=== PATIENT | female | born 1975 | race Caucasian/White ===

== ENCOUNTER → 2016-05-12 | Outpatient (CLI) | payer OTHER ==
--- NOTE | 2016-05-12 22:18 | MR ---
EXAMINATION TYPE: MR cervical spine wo con DATE OF EXAM: 05/12/2016 9:08 PM COMPARISON: 12/18/2013 HISTORY: Radiculopathy, cervical region TECHNIQUE: Multiplanar, multisequence images of the cervical spine were acquired. C2-C3: No evidence for degenerative disc disease. No disc bulge/herniation or protrusion. No Canal stenosis. Foramina are patent bilaterally. C3-C4: No evidence for degenerative disc disease. No disc bulge/herniation or protrusion. No Canal stenosis. Foramina are patent bilaterally. C4-C5: No evidence for degenerative disc disease. No disc bulge/herniation or protrusion. No Canal stenosis. Foramina are patent bilaterally. C5-C6: Vertebral body hemangioma of C5. There is degenerative disc disease. There is a broad-based ce ntral disc protrusion with mild effacement of thecal sac. No evidence of foraminal encroachment. C6-C7: Degenerative disc disease and left paracentral disc bulging or broad-based protrusion. Neural foramina remain patent. No spinal cord contact. C7-T1: No canal stenosis or disc herniation. Mild uncovertebral joint hypertrophy in the left. No for aminal encroachment Cervical segments are intact. There is normal alignment. Cervical spinal cord is limited due to mot ion artifact with no gross abnormal signal.. Craniovertebral junction demonstrates low-lying cerebel lar tonsils. IMPRESSION: 1. Degenerative disc disease C5-C6 and C6-C7 with disc protrusions and mild effacement of thecal sac but no evidence of foraminal encroachment or nerve root impingement. Findings are stable. 2. Low-lying cerebellar tonsils.
== END | disposition home or self-care (01) ==
LOC: RADMRIMAIN 20:33
PROVIDERS: ATTEND Family Medicine
DX: M50.122 Cervical disc disorder at C5-C6 level with radiculopathy (principal)
CPT/HCPCS: 72141

== ENCOUNTER → 2016-07-25 | Outpatient (CLI) | payer OTHER ==
--- NOTE | 2016-07-25 14:50 | MM ---
Reason for exam: screening (asymptomatic). Baseline mammogram. Physical Findings: Nurse Summary: 4cm nodule in the right medial retroareolar positon. (nurse mm) MG 3D Screening Mammo W/Cad Bilateral CC and MLO view(s) were taken. The breast tissue is heterogeneously dense. This may lower the sensitivity of mammography. Large right breast mass at site of palpable abnormality, ultrasound is recommended. These results were verbally communicated with the patient and result sheet given to the patient on 07/25/16. ASSESSMENT: Incomplete: need additional imaging evaluation, BI-RAD 0 RECOMMENDATION: Ultrasound of the right breast. Manage patient on a clinical basis.
--- NOTE | 2016-07-25 14:50 | USB ---
Reason for exam: additional evaluation requested from abnormal screening. Physical Findings: Breast exam preformed at baseline screening. US Breast Workup RT Right breast ultrasound includes all four quadrants, the retroareolar region and axilla. Finding demonstrates a 0.3 x 0.5 x 0.2cm oval, hypoechoic lesion at 6 o'clock, a 0.6 x 0.6 x 0.6cm round, mixed lesion at 8 o'clock, a 0.4 x 0.5 x 0.3cm oval, mixed lesion at 8 o'clock, a 0.9 x 0.5 x 0.3cm oval, hypoechoic lesion at 9 o'clock, a 5.5 x 4.3 x 3.0cm oval, cystic lesion at retroareolar position and a 1.2 x 1.0 x 0.5cm oval, cystic lesion at inferior retroareolar position. A 6 month follow up is recommended. These results were verbally communicated with the patient and result sheet given to the patient on 07/25/16. ASSESSMENT: Probably benign, BI-RAD 3 RECOMMENDATION: Ultrasound of the right breast in 6 months. Manage patient on a clinical basis.
== END | disposition home or self-care (01) ==
LOC: RADMAMWWP 12:45
PROVIDERS: ATTEND Obstetrics & Gynecology
DX: Z12.31 Encounter for screening mammogram for malignant neoplasm of breast (principal); R92.8 Other abnormal and inconclusive findings on diagnostic imaging of breast
CPT/HCPCS: 77063; 76641; G0202

== ENCOUNTER 2016-09-17 21:27 | Emergency (ER) | payer OTHER ==
[2016-09-17 21:44] VITALS: BP 122/83; PULSE 83; RESP 18; TEMP 97.9
[2016-09-17] MEDS ORDERED: IBUPROFEN 600 MG TAB PO STA (21:56)
--- NOTE | 2016-09-17 22:02 | ED ---
Extremity Problem HPI - General Chief complaint: Extremity Problem,Nontraumatic Stated complaint: L foot pain Time Seen by Provider: 09/17/16 21:42 Source: patient Mode of arrival: ambulatory Limitations: no limitations - History of Present Illness Initial comments: This patient is a 41-year-old woman who complains of a bit over a week of left foot pain, mainly along the lateral aspect. She states there may be a little bit of swelling as well. She saw her physician Dr. Santizo wanted her to have an x-ray but she has not been able to do that yet. Patient does not recall a definite injury to her foot. She is not having any systemic symptoms, including no fever or chills, no chest pain, dyspnea, cough, palpitations or syncope. MD Complaint: extremity pain Onset/Timin -: week(s) Location: left History of Same: No Quality: aching Consistency: constant Improves with: nothing Worsens with: weight bearing, walking Associated Symptoms: denies other symptoms - Related Data Home Medications Medication Instructions Recorded Confirmed Hydrocodone/Acetaminophen [[place] 1 tab PO Q4H PRN 12/22/13 08/26/15 10-325] ARIPiprazole [Abilify] 10 mg PO HS 08/26/15 08/26/15 OXcarbazepine [Trileptal] 150 mg PO BID 08/26/15 08/26/15 Topiramate [Topamax] 25 mg PO BID 08/26/15 08/26/15 Vortioxetine Hydrobromide 20 mg PO HS 08/26/15 08/26/15 [Brintellix] Allergies Allergy/AdvReac Type Severity Reaction Status Date / Time ciprofloxacin [From Cipro] Allergy Rash/Hives Verified 09/17/16 21:44 ciprofloxacin HCl Allergy Rash/Hives Verified 09/17/16 21:44 [From Cipro] dicyclomine HCl [From Bentyl] Allergy Unknown Verified 09/17/16 21:44 doxycycline calcium Allergy Unknown Verified 09/17/16 21:44 [From Vibramycin] doxycycline hyclate Allergy Unknown Verified 09/17/16 21:44 [From Vibramycin] doxycycline monohydrate Allergy Unknown Verified 09/17/16 21:44 [From Vibramycin] oxycodone HCl [From Percocet] Allergy Unknown Verified 09/17/16 21:44 tetracycline [Tetracycline] Allergy Unknown Verified 09/17/16 21:44 Review of Systems ROS Statement: Those systems with pertinent positive or pertinent negative responses have been documented in the HPI. ROS Other: All systems not noted in ROS Statement are negative. Constitutional: Denies: fever, chills, weakness Respiratory: Denies: dyspnea Cardiovascular: Denies: chest pain, palpitations Musculoskeletal: Reports: as per HPI, arthralgia. 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, bilateral knee pain History of Any Multi-Drug Resistant Organisms: MRSA Date of last positivie culture/infection: 04/16/15 MDRO Source:: Right Arm Past Surgical History: Cholecystectomy, Hernia Repair, Orthopedic Surgery, Tubal Ligation Additional Past Surgical History / Comment(s): back pains, left knee Past Psychological History: Anxiety, Bipolar, Depression Smoking Status: Current some day smoker Past Alcohol Use History: None Reported, Occasional Past Drug Use History: None Reported General Exam Limitations: no limitations General appearance: alert Cardiovascular Exam: Present: other (Normal dorsalis pedis pulses and normal capillary refill.) Extremities exam: Present: normal inspection, tenderness (Over the base of the fifth metatarsal tarsal. There is no obvious deformity.), normal capillary refill. Absent: pedal edema, calf tenderness Neurological exam: Absent: motor sensory deficit Skin exam: Present: warm, dry, intact, normal color. Absent: rash Course Vital Signs 09/17/16 21:41 Temperature 97.9 F Pulse Rate 83 Respiratory 18 Rate Blood Pressure 122/83 O2 Sat by Pulse 97 Oximetry Disposition Clinical Impression: Foot pain Disposition: HOME SELF-CARE Condition: Fair Instructions: Arthralgia (ED) Referrals: Gee Santizo MD [Primary Care Provider] - 1-2 days Luis Angel Reynolds DPM [STAFF PHYSICIAN] - 1-2 days
--- NOTE | 2016-09-17 22:27 | XR ---
EXAM: XR Left Foot Complete, 3 or More Views CLINICAL HISTORY: Reason: Pain TECHNIQUE: Frontal, lateral and oblique views of the left foot. COMPARISON: No relevant prior studies available. FINDINGS: Bones/joints: No acute fracture or malalignment. Plantar calcaneal osteophyte. Soft tissues: Unremarkable. No radiopaque foreign body. IMPRESSION: No acute fracture or malalignment.
== END 2016-09-17 22:59 | disposition home or self-care (01) ==
LOC: EC 21:27
DX: M79.672 Pain in left foot (principal); F31.9 Bipolar disorder, unspecified; F41.9 Anxiety disorder, unspecified; F17.200 Nicotine dependence, unspecified, uncomplicated; Z79.899 Other long term (current) drug therapy; Z88.1 Allergy status to other antibiotic agents; Z88.5 Allergy status to narcotic agent
CPT/HCPCS: 99283

== ENCOUNTER → 2016-10-05 | Outpatient (CLI) | payer OTHER ==
--- NOTE | 2016-10-05 14:31 | NM ---
EXAMINATION TYPE: NM bone/joint limited DATE OF EXAM: 10/05/2016 COMPARISON: 09/17/2016 HISTORY: Left foot pain TECHNIQUE: After the intravenous administration of 26.7 mCi Tc 99m MDP. Images acquired 3.5 hours p ost injection. Multiple views of left foot and ankle are submitted. There is intense abnormal uptake involving the dorsal surface of the mid tarsal region. Faint abnormal uptake involving the MTP joint of both digits compatible with arthritic change. IMPRESSION: 1. Intense abnormal uptake mid tarsal region left foot near the junction of the second metatarsal and its articulation with adjacent tarsal bone. Finding nonspecific. Differential diagnosis would includ e fracture, post arthritic change or intraosseous lesion in the differential. No intraosseous lesion seen by recent x-ray. If concern for occult fracture consider MRI follow-up.
== END | disposition home or self-care (01) ==
LOC: RADNMMAIN 10:11
PROVIDERS: ATTEND Family Medicine
DX: M79.662 Pain in left lower leg (principal)
CPT/HCPCS: 78300; A9503

== ENCOUNTER 2016-10-16 07:46 | Emergency (ER) | payer OTHER ==
[2016-10-16 07:52] VITALS: TEMP 97.8
[2016-10-16] MEDS ORDERED: KETOROLAC 60 MG/2 ML VIAL IM STA (08:14)
[2016-10-16 08:15] VITALS: BP 130/80; PULSE 89; RESP 18
--- NOTE | 2016-10-16 08:16 | ED ---
Lower Extremity Injury HPI - General Chief Complaint: Extremity Injury, Lower Stated Complaint: left foot pain Time Seen by Provider: 10/16/16 08:01 Source: patient Mode of arrival: wheelchair Limitations: no limitations - History of Present Illness Initial Comments: Patient is a 41-year-old female since emergency room for evaluation of left foot pain. Patient has been having left foot pain for the past month. Patient states she received a bone scan on 10/05/16 was told that she either has a fracture or a lesion. Patient states she has an MRI scheduled for next Sunday. Patient states she's continuing to have pain every time she walks. Patient states she's been taking [place] as prescribed by her primary care provider. Patient states that she came here today because she would like an MRI today. Patient states she wants to know what is wrong with her foot. Patient denies any recent new injuries to her foot. Patient denies any worsening pain. Patient denies numbness or tingling in her toes. Patient denies any redness or swelling at the area. Patient denies fevers or chills. Patient denies any other symptoms or complaints at this time. - Related Data Home Medications Medication Instructions Recorded Confirmed Hydrocodone/Acetaminophen [[place] 1 tab PO Q4H PRN 12/22/13 10/16/16 10-325] ARIPiprazole [Abilify] 10 mg PO HS 08/26/15 10/16/16 DULoxetine HCL [Cymbalta] 60 mg PO HS 10/16/16 10/16/16 Ibuprofen [Motrin] 400 mg PO DAILY PRN 10/16/16 10/16/16 LORazepam [Ativan] 1 mg PO DAILY PRN 10/16/16 10/16/16 OXcarbazepine [Trileptal] 300 mg PO HS 10/16/16 10/16/16 traZODone HCL [Desyrel] 100 mg PO HS 10/16/16 10/16/16 Allergies Allergy/AdvReac Type Severity Reaction Status Date / Time ciprofloxacin [From Cipro] Allergy Rash/Hives Verified 10/16/16 08:07 ciprofloxacin HCl Allergy Rash/Hives Verified 10/16/16 08:07 [From Cipro] dicyclomine HCl [From Bentyl] Allergy Unknown Verified 10/16/16 08:07 doxycycline calcium Allergy Unknown Verified 10/16/16 08:07 [From Vibramycin] doxycycline hyclate Allergy Unknown Verified 10/16/16 08:07 [From Vibramycin] doxycycline monohydrate Allergy Unknown Verified 10/16/16 08:07 [From Vibramycin] oxycodone HCl [From Percocet] Allergy Unknown Verified 10/16/16 08:07 tetracycline [Tetracycline] Allergy Unknown Verified 10/16/16 08:07 Review of Systems ROS Statement: Those systems with pertinent positive or pertinent negative responses have been documented in the HPI. ROS Other: All systems not noted in ROS Statement are negative. 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, bilateral knee pain History of Any Multi-Drug Resistant Organisms: MRSA Date of last positivie culture/infection: 04/16/15 MDRO Source:: Right Arm Past Surgical History: Cholecystectomy, Hernia Repair, Orthopedic Surgery, Tubal Ligation Additional Past Surgical History / Comment(s): back pains, left knee Past Psychological History: Anxiety, Bipolar, Depression Smoking Status: Current some day smoker Past Alcohol Use History: None Reported, Occasional Past Drug Use History: None Reported General Exam Limitations: no limitations General appearance: alert, in no apparent distress Head exam: Present: atraumatic, normocephalic, normal inspection Eye exam: Present: normal appearance ENT exam: Present: normal exam Neck exam: Present: normal inspection Respiratory exam: Absent: respiratory distress Left Ankle exam: Present: normal inspection. Absent: tenderness Foot/Toe exam: Present: full ROM, tenderness (Palpating over the fifth metatarsal area) Neurovascular tendon exam: Present: no vascular compromise. Absent: pulse deficit (2+ dorsal pedal and posterior tibial pulses), abnormal cap refill ( Capillary refill less than 2 seconds) Back exam: Present: normal inspection Neurological exam: Present: alert, oriented X3, CN II-XII intact Psychiatric exam: Present: normal affect, normal mood Skin exam: Present: warm, dry, intact, normal color. Absent: rash Course Vital Signs 10/16/16 10/16/16 07:49 07:57 Temperature 97.8 F Pulse Rate 84 89 Respiratory 17 18 Rate Blood Pressure 130/70 130/80 O2 Sat by Pulse 99 99 Oximetry Medical Decision Making - Medical Decision Making Patient is a 41-year-old female presents to the emergency room for evaluation of left foot pain. Patient has had x-rays, bone scan and is following up with quarter seamer and primary care provider. Patient does have an MRI scheduled for next Sunday. Patient came here wanting an MRI today. I did explain to patient that we do not do nonemergent MRIs in the emergency room. Advised patient to follow-up with primary care provider. Patient has [place] at home for pain. Patient given Toradol here and sent home. Patient states she understands everything that was discussed with her. Return parameters discussed. Case discussed Dr. Allen. Disposition Clinical Impression: Left foot pain Disposition: HOME SELF-CARE Condition: Good Instructions: Foot Fracture in Adults (ED) Additional Instructions: Rest, ice and elevate. Continue taking prescribed pain medications as needed. Please follow-up with primary care provider or quarter seamer. If new symptoms develop or symptoms worsen, please return to the ER. Referrals: Gee Santizo MD [Primary Care Provider] - 1-2 days Time of Disposition: 08:15
== END 2016-10-16 09:24 | disposition home or self-care (01) ==
LOC: EC 07:46
DX: M79.672 Pain in left foot (principal); F31.9 Bipolar disorder, unspecified; F41.9 Anxiety disorder, unspecified; F17.200 Nicotine dependence, unspecified, uncomplicated; Z79.899 Other long term (current) drug therapy; Z88.1 Allergy status to other antibiotic agents; Z88.8 Allergy status to other drugs, medicaments and biological substances; Z98.890 Other specified postprocedural states
CPT/HCPCS: 99283; 96372; J1885

== ENCOUNTER → 2016-10-23 | Outpatient (CLI) | payer OTHER ==
--- NOTE | 2016-10-24 14:40 | MR ---
MR left foot without contrast HISTORY: Foot pain, S92.3 Correlation to nuclear medicine bone scan 10/05/2016, left foot 09/17/2016 Multiplanar multisequence imaging through the left foot There is increased signal on T2-weighted sequences, low signal on T1-weighted sequences involving the proximal second metatarsal. Low signal linear focus present within the proximal aspect of the second metatarsal seen better on the axial images is noted. Alignment appears maintained. Cystic foci present within the medial aspect of the distal first metatarsal correlate with plain film findings. There is a hallux valgus deformity. Subcutaneous edema present within the soft tissues of the distal leg. Tendons appear intact. Plantar aponeurosis is intact. Lisfranc ligament thought to be intact. Impression: Proximal second metatarsal fracture with associated bone marrow edema. No evident displac ement.
== END | disposition home or self-care (01) ==
LOC: RADMRIMAIN 06:00
PROVIDERS: ATTEND Podiatrist Foot & Ankle Surgery
DX: S92.322A Displaced fracture of second metatarsal bone, left foot, initial encounter for closed fracture (principal)

== ENCOUNTER → 2016-12-19 | Outpatient (CLI) | payer OTHER ==
--- NOTE | 2016-12-19 11:21 | XR ---
EXAMINATION TYPE: XR knee complete LT DATE OF EXAM: 12/19/2016 COMPARISON: 05/29/2015 HISTORY: Pain TECHNIQUE: Four views are submitted. FINDINGS: Mild narrowing of the medial compartment of the joint space. Osseous structures are intact. No acute fracture seen. IMPRESSION: 1. No acute fracture or dislocation. 2. Mild arthropathy.
--- NOTE | 2016-12-19 11:24 | XR ---
EXAM TYPE: LUMBAR SPINE X RAY SERIES COMPARISON: NONE HISTORY: Pain TECHNIQUE: 4 views are submitted. FINDINGS: Alignment is anatomic. The pedicles are intact. The transverse processes are intact. There is no s pondylolysis or spondylolisthesis. Surgical clips in the right upper quadrant. Moderate degenerative disc disease L4-5 and severe change s L5-S1 with facet arthropathy. No compression deformities. IMPRESSION: 1. Multilevel degenerative disc disease.
== END | disposition home or self-care (01) ==
LOC: RADXRMAIN 09:59
PROVIDERS: ATTEND Family Medicine
DX: M51.36 Other intervertebral disc degeneration, lumbar region (principal); M12.862 Other specific arthropathies, not elsewhere classified, left knee
CPT/HCPCS: 72100

== ENCOUNTER → 2017-06-13 | Outpatient (CLI) | payer OTHER ==
--- NOTE | 2017-06-13 11:54 | MM ---
Reason for exam: additional evaluation requested from prior study. Last mammogram was performed 11 months ago. History: Patient is nulliparous. Took hormonal contraceptives for 13 years beginning at age 15. Physical Findings: Nurse Summary: less than 1cm nodule in the right breast at 6 o'clock (nurse rm). MG 3D Diag Mammo W/Cad RT CC and MLO view(s) were taken of the right breast. Prior study comparison: July 25, 2016, bilateral MG 3d screening mammo w/cad. The breast tissue is heterogeneously dense. This may lower the sensitivity of mammography. The previous large mass has decreased in size. Dense tissues are again demonstrated. Ultrasound 6-9 o'clock recommended as follow up from 07/25/16. These results were verbally communicated with the patient and result sheet given to the patient on 06/13/17. ASSESSMENT: Incomplete: need additional imaging evaluation, BI-RAD 0 RECOMMENDATION: Ultrasound of the right breast. (6-9 o'clock)
--- NOTE | 2017-06-13 11:57 | USB ---
Reason for exam: additional evaluation requested from abnormal screening. History: Patient is nulliparous. Took hormonal contraceptives for 13 years beginning at age 15. US Breast Workup Limited RT Right breast ultrasound demonstrates a 9mm oval, cystic lesion at 6 o'clock BB, this is embedded in dense tissue and is mildly decreased in size from priors, a 9mm oval, cystic lesion at 7 o'clock, a 5mm oval, cystic lesion at 7 o'clock and a 5mm oval, cystic lesion at 8 o'clock. Patient is due for annual exam in 2 months. These results were verbally communicated with the patient and result sheet given to the patient on 06/13/17. ASSESSMENT: Probably benign, BI-RAD 3 RECOMMENDATION: Follow-up diagnostic mammogram of both breasts in 2 months. Back on schedule.
== END | disposition home or self-care (01) ==
LOC: RADMAMWWP 09:57
PROVIDERS: ATTEND Family Medicine
DX: N63.10 Unspecified lump in the right breast, unspecified quadrant (principal); R92.8 Other abnormal and inconclusive findings on diagnostic imaging of breast
CPT/HCPCS: 77065; 76642; G0279

== ENCOUNTER 2017-12-12 11:31 | Inpatient (IN) | payer OTHER ==
[2017-12-12] MEDS: metroNIDAZOLE 500 MG TAB PO SCH ×2 (16:22→21:38)
[2017-12-12] MEDS: KETOROLAC 30 MG/ML 1 ML VIAL IVP SCH (16:22)
[2017-12-12] MEDS: LACTATED RINGERS 1,000 ML IV SCH (16:23)
--- NOTE | 2017-12-12 17:40 | P.OBCN ---
History of Present Illness Consult date: 12/12/17 Requesting physician: Vladislav Bradshaw Reason for consult: pelvic pain (with CT at [facility] showing some heterogenous area in left adnexa) Chief complaint: Left Upper Quadrant Pain History of present illness: 42 year old admitted into the [facility] for left upper quadrant pain. The pain started last Sunday and her PCP, Dr. Bradshaw, ordered a computed tomography scan at [facility]. This computed tomography scan showed a heterogenous area of about 5 cm in the left adnexa. He placed her on Flagyl and Levaquin outpatient and ordered an ultrasound to be performed this evening. She failed this outpatient treatment and he admitted her directly today for her pain. I was consulted for possible tubo-ovarian abscess. The patient states she has been having intercourse with a relatively new boyfriend. She's been having no increase in vaginal discharge and no increase in pelvic pain. She's been going the bathroom moderate but does have an increase in pain/pressure with urination and bowel movements. She has no diarrhea or constipation. Review of Systems All systems: negative Constitutional: Reports chills, Denies fever Eyes: denies blurred vision, denies pain Ears, nose, mouth and throat: Denies headache, Denies sore throat Cardiovascular: Denies chest pain, Denies shortness of breath Respiratory: Denies cough Gastrointestinal: Reports abdominal pain, Denies diarrhea, Denies nausea, Denies vomiting Genitourinary: Denies dysuria, Denies hematuria Musculoskeletal: Denies myalgias Integumentary: Denies pruritus, Denies rash Neurological: Denies numbness, Denies weakness Psychiatric: Denies anxiety, Denies depression Endocrine: Denies fatigue, Denies weight change Past Medical History Additional Past Medical History / Comment(s): Bicornuate uterus, diverticular disease, past rectal bleed, lymphedema, chronic low back pain, past tailbone fracture, depression History of Any Multi-Drug Resistant Organisms: MRSA Year Discovered:: 04/16/15 MDRO Source:: Right Arm Past Surgical History: Adenoidectomy, Section, Cholecystectomy, Hernia Repair, Orthopedic Surgery, Tonsillectomy, Tubal Ligation Additional Past Surgical History / Comment(s): EGDs/colonoscopies, incisional hernia repair, D&C, low back pain procedures, lower lip mole removal. Past Psychological History: Depression Smoking Status: Current every day smoker Past Alcohol Use History: None Reported Past Drug Use History: None Reported - Past Family History Father Family Medical History: CVA/TIA, Hypertension Mother Family Medical History: Diabetes Mellitus Medications and Allergies Home Medications Medication Instructions Recorded Confirmed Type Hydrocodone/Acetaminophen 1 tab PO Q4-6H PRN 12/12/17 12/12/17 History [Hydrocodone-Acetamin 10-300 mg] Sulfamethoxazole/Trimethoprim 1 tab PO BID 12/12/17 12/12/17 History [Bactrim DS 800-160 mg] metroNIDAZOLE [Flagyl] 500 mg PO TID 12/12/17 12/12/17 History Allergies Allergy/AdvReac Type Severity Reaction Status Date / Time ciprofloxacin [From Cipro] Allergy Rash/Hives Verified 12/12/17 14:12 ciprofloxacin HCl Allergy Rash/Hives Verified 12/12/17 14:12 [From Cipro] dicyclomine HCl [From Bentyl] Allergy Unknown Verified 12/12/17 14:12 doxycycline calcium Allergy Unknown Verified 12/12/17 14:12 [From Vibramycin] doxycycline hyclate Allergy Unknown Verified 12/12/17 14:12 [From Vibramycin] doxycycline monohydrate Allergy Unknown Verified 12/12/17 14:12 [From Vibramycin] oxycodone HCl [From Percocet] Allergy Unknown Verified 12/12/17 14:12 tetracycline [Tetracycline] Allergy Unknown Verified 12/12/17 14:12 Exam Osteopathic Statement: *. No significant issues noted on an osteopathic structural exam other than those noted in the History and Physical/Consult. Vital Signs Temp Pulse Resp BP Pulse Ox 12/12/17 15:00 97.9 F 71 16 108/67 99 Intake and Output 12/12/17 12/12/17 12/12/17 06:59 14:59 22:59 Other: Weight 77.1 kg Heart: RRR Lungs: CTAB Abdomen: soft, tender in LUQ to deep palpation, +BS, no rebound or rigidity Extremeties: neg erica's Assessment and Plan (1) Abdominal infection Current Visit: Yes Status: Acute Code(s): K65.9 - PERITONITIS, UNSPECIFIED SNOMED Code(s): 031559743 Plan: 1. pelvic ultrasound 2. I am not convinced this is a tubo-ovarian abscess yet. I cannot do GC/C testing as she has been on levaquin for a few days already. I will get the US and review the CT again. She is currently on IV flagyl and Bactrim. We will see if these improve her symptoms and what the US shows.
--- NOTE | 2017-12-12 18:40 | HP ---
HISTORY AND PHYSICAL CHIEF COMPLAINT: Left lower abdominal pain for several days. HISTORY OF PRESENT ILLNESS: This is the first known admission for this 42-year-old white female who came to the office with abdominal pain a day or 2 ago. She seemed to be quite uncomfortable and the diagnosis was difficult. She was sent for a CT of the abdomen which demonstrated a left lower quadrant mass and possibly something going on in the area of the left ovary or fallopian tube. She had no fever, vomiting, diarrhea, urinary complaints, etc. There was concern that she could have diverticulitis, but when the CT suggested something on the left ovary, an ultrasound was ordered, but apparently the patient was stuck in the hospital and the procedure was not done. She called the office several hours later that she was leaving. We followed up with her on the morning of admission, and her pain was not any better or worse, and she was directed to the hospital. REVIEW OF SYSTEMS: She has had no neurologic problems, cough, shortness of breath, chest pain, hemoptysis, hypertension, heart disease, nausea, vomiting, hematemesis, melena, hematochezia, hematuria, dysuria, frequency, renal disease, vaginal discharge, bleeding, etc. Past medical history, family history, and personal and social histories reveal that she is ALLERGIC to: 1. PENICILLIN. 2. PERCOCET. 3. GEODON. 4. BENTYL. 5. TETRACYCLINE. She had been given Levaquin 750 mg once a day and Flagyl 500 three times a day. Past medical history reveals she has had a tubal ligation and herniorrhaphy as well as cholecystectomy. She has had 4 pregnancies and 4 children. She does smoke. PHYSICAL EXAMINATION: Blood pressure 122/80, pulse 84, respirations 16 and temperature 98.6. In general she appeared to be uncomfortable. Skin color was normal. Skin was warm and dry. Lymph nodes were not enlarged. Head, ears, eyes, nose, mouth and throat were normal. Neck veins were not distended. CHEST: Clear. Cardiac exam was normal. The abdomen was slightly protuberant and she had generalized mild lower abdominal tenderness which was a little worse on the left than on the right. There were no masses. Pelvic was not performed in the office. Neurologically she was intact. IMPRESSION: 1. Left lower quadrant abdominal pain, etiology unknown. 2. ? left ovarian abnormality. PLAN: 1. Bedrest. 2. IV fluids. 3. Continue antibiotics. 4. Consult with Gynecology and Surgery. OFELIA / LOYN: [id number] /
--- NOTE | 2017-12-12 19:42 | US ---
EXAMINATION TYPE: US pelvis complete transvag DATE OF EXAM: 12/12/2017 COMPARISON: NONE CLINICAL HISTORY: LLQ pain. LLQ pain. Patient unable to drink water. Unknown LMP- Patient states sh e does not keep track since her tubal ligation TECHNIQUE: Transabdominal (TA). Transabdominal sonographic images of the pelvis were acquired. Tra nsvaginal sonographic images were medically necessary to better assess the following anatomy: Ovaries , Uterus and Endometrium Date of LMP: Unknown, EXAM MEASUREMENTS: Uterus: 7.8 x 5.1 x 3.9 cm Endometrial Stripe: 0.8 cm Right Ovary: 3.6 x 2.3 x 1.9 cm Left Ovary: 3.5 x 1.7 x 2.0 cm 1. Uterus: Anteverted wnl 2. Endometrium: wnl 3. Right Ovary: Pedunculated cystic appearing lesion seen = 1.7 x 1.4 cm. 4. Left Ovary: two lesions seen. 1- peripheral vascular flow seen = 1.8 x 1.4 x 1.8 cm. 2- Heterog enous, nonvascular = 1.8 x 1.5 x 1.4 cm 5. Bilateral Adnexa: free fluid seen adjacent to left ovary 6. Posterior cul-de-sac: Moderate amount of free fluid IMPRESSION: Uterus appears normal. There is free fluid in the cul-de-sac. There is a thick-walled cys t that measures 18 mm on the left ovary. There is a simple 17 mm cyst on the right ovary.
[2017-12-12] MEDS: HYDROmorphone 1 MG/ML 1 ML SYRINGE IVP PRN (19:51)
[2017-12-12] MEDS: SULFAMETHOX-TMP 800-160MG 1 EACH TAB PO SCH (21:38)
[2017-12-13] MEDS: KETOROLAC 30 MG/ML 1 ML VIAL IVP SCH ×4 (00:39→18:35)
[2017-12-13] MEDS: LACTATED RINGERS 1,000 ML IV SCH ×3 (00:40→18:52)
[2017-12-13 02:25] VITALS: RESP 18
[2017-12-13] MEDS: HYDROmorphone 1 MG/ML 1 ML SYRINGE IVP PRN ×3 (04:28→21:01)
[2017-12-13] MEDS: SULFAMETHOX-TMP 800-160MG 1 EACH TAB PO SCH ×2 (07:16→20:55)
[2017-12-13] MEDS: metroNIDAZOLE 500 MG TAB PO SCH ×3 (07:16→21:00)
[2017-12-13 09:21] LABS: Basophils % (A) 0 %; Eosinophils # (A) 0.1 k/uL (0-0.7); Eosinophils % (A) 2 %; HCT 39.3 % (34.0-46.0); HGB 13.1 gm/dL (11.4-16.0); Lymphocytes # (A) 2.2 k/uL (1.0-4.8); Lymphocytes % (A) 51 %; MCH 30.3 pg (25.0-35.0); MCHC 33.3 g/dL (31.0-37.0); MCV 91.2 fL (80.0-100.0); Mean Platelet Volume 7.2; Monocytes # (A) 0.3 k/uL (0-1.0); Monocytes % (A) 7 %; Neutrophils # (A) 1.7 k/uL (1.3-7.7); Neutrophils % (A) 38 %; Platelet Count 194 k/uL (150-450); WBC 4.4 k/uL (3.8-10.6)
[2017-12-13 15:28] VITALS: BMI 26.6
--- NOTE | 2017-12-13 17:33 | P.GSCN ---
History of Present Illness Consult date: 12/13/17 Reason for Consult: Abdominal pain History of present illness: 42-year-old female known to our service. Patient has had complaints of nausea and occasional episodes of vomiting since 1 week ago. She went to the ER at [facility] last Sunday. CAT scan was apparently performed and showed a 5 cm left adnexal heterogeneous area. She was apparently given oral antibiotics and discharged home. She went to her PCP and was then subsequently admitted. Still having pain in the left lower quadrant. Seems to be improving. Nausea and vomiting are better. She is afebrile. White blood cell count is normal. [employer] ordered an ultrasound which showed 2 cystic lesions in the left adnexa. No significant change in bowel habits. No rectal bleeding. She is hungry. Official records from [facility] not available at this time. Review of Systems The patient denies any acute changes in vision or hearing, no dysphagia or odynophagia, no chest pain or shortness of breath, no dysuria or hematuria, no headache, no runny nose, no rectal bleeding or melena, no unexplained weight loss Past Medical History Additional Past Medical History / Comment(s): Bicornuate uterus, diverticular disease, past rectal bleed, lymphedema, chronic low back pain, past tailbone fracture, depression History of Any Multi-Drug Resistant Organisms: MRSA Year Discovered:: 04/16/15 MDRO Source:: Right Arm Past Surgical History: Adenoidectomy, Section, Cholecystectomy, Hernia Repair, Orthopedic Surgery, Tonsillectomy, Tubal Ligation Additional Past Surgical History / Comment(s): EGDs/colonoscopies, incisional hernia repair, D&C, low back pain procedures, lower lip mole removal. Past Psychological History: Depression Smoking Status: Current every day smoker Past Alcohol Use History: None Reported Past Drug Use History: None Reported - Past Family History Father Family Medical History: CVA/TIA, Hypertension Mother Family Medical History: Diabetes Mellitus Medications and Allergies Home Medications Medication Instructions Recorded Confirmed Type Hydrocodone/Acetaminophen 1 tab PO Q4-6H PRN 12/12/17 12/12/17 History [Hydrocodone-Acetamin 10-300 mg] Sulfamethoxazole/Trimethoprim 1 tab PO BID 12/12/17 12/12/17 History [Bactrim DS 800-160 mg] metroNIDAZOLE [Flagyl] 500 mg PO TID 12/12/17 12/12/17 History Allergies Allergy/AdvReac Type Severity Reaction Status Date / Time ciprofloxacin [From Cipro] Allergy Rash/Hives Verified 12/12/17 14:12 ciprofloxacin HCl Allergy Rash/Hives Verified 12/12/17 14:12 [From Cipro] dicyclomine HCl [From Bentyl] Allergy Unknown Verified 12/12/17 14:12 doxycycline calcium Allergy Unknown Verified 12/12/17 14:12 [From Vibramycin] doxycycline hyclate Allergy Unknown Verified 12/12/17 14:12 [From Vibramycin] doxycycline monohydrate Allergy Unknown Verified 12/12/17 14:12 [From Vibramycin] oxycodone HCl [From Percocet] Allergy Unknown Verified 12/12/17 14:12 tetracycline [Tetracycline] Allergy Unknown Verified 12/12/17 14:12 Surgical - Exam Vital Signs Temp Pulse Resp BP Pulse Ox 97.9 F 71 16 108/67 99 12/12/17 15:00 12/12/17 15:00 12/12/17 15:00 12/12/17 15:00 12/12/17 15:00 Physical exam: General: Well-developed, well-nourished HEENT: Normocephalic, sclerae nonicteric Abdomen: Mild left lower quadrant tenderness, nondistended Extremities: No edema Neuro: Alert and oriented Results - Labs 12/13/17 08:55 Assessment and Plan (1) Abdominal pain Narrative/Plan: We'll review official CT report. Continue antibiotics. If symptoms persist would recommend repeat CAT scan with oral and IV contrast. Patient is hungry. Will resume diet. Current Visit: Yes Status: Acute Code(s): R10.9 - UNSPECIFIED ABDOMINAL PAIN SNOMED Code(s): 27389949
[2017-12-14] MEDS: KETOROLAC 30 MG/ML 1 ML VIAL IVP SCH ×3 (01:30→11:18)
[2017-12-14] MEDS: LACTATED RINGERS 1,000 ML IV SCH ×2 (01:31→07:55)
[2017-12-14] MEDS: HYDROmorphone 1 MG/ML 1 ML SYRINGE IVP PRN (07:57)
[2017-12-14] MEDS: SULFAMETHOX-TMP 800-160MG 1 EACH TAB PO SCH (07:57)
[2017-12-14] MEDS: metroNIDAZOLE 500 MG TAB PO SCH (07:57)
[2017-12-14] MEDS ORDERED: IOPAMIDOL-300 CONTRAST 30 ML VIAL (ORAL USE) PO PRN (11:22)
--- NOTE | 2017-12-14 11:22 | P.PN ---
Subjective Progress Note Date: 12/14/17 42-year-old female who reports continues to have persistent left lower quadrant pain no improvement from prior assessment. Patient states she tried to eat a regular diet last night ate a small amount after eating noted increased left lower quadrant pain nausea sensation no emesis. Patient points to the left lower quadrant is to the reference point. Patient apparently went to the emergency room at last Sunday. CAT scan apparently was performed showed a 5 cm left adenexal area. Patient apparently at that time was given oral antibiotic and sent home. Went to her PCP who subsequently advised admission. Have not been able to obtain medical records from at this time Objective - Vital Signs Vital signs: Vital Signs Temp 98.5 F 12/14/17 07:00 Pulse 65 12/14/17 07:00 Resp 18 12/14/17 07:00 BP 107/70 12/14/17 07:00 Pulse Ox 97 12/14/17 07:00 Intake & Output 12/13/17 12/14/17 12/14/17 18:59 06:59 18:59 Intake Total 750 480 Balance 750 480 Weight 77.1 kg Intake: Oral 750 480 Other: Voiding Method Toilet # Voids 3 2 # Bowel Movements 0 - Exam Physical exam 42-year-old female in room continues to report having left lower quadrant pain Lungs adequate air movement bilaterally on room air Heart S1-S2 audible regular Abdomen mild tenderness left lower quadrant. Soft nondistended bowel tones present states belching no stool reports a nausea sensation after trying to eat a regular diet last night - Labs CBC & Chem 7: 12/13/17 08:55 Assessment and Plan Assessment: Impression Present on admission left lower quadrant pain unclear etiology Abdominal pain present on admission left lower quadrant A prior CAT scan of the abdomen pelvis performed at [facility] on report indicate 5cm left adnexal area Ultrasound to cyst in the left adnexa Plan repeat a computed tomography scan with IV and oral contrast the abdomen pelvis follow up on results Pain control, Attempt to obtain prior medical records from Dictating progress note for Dr. virk running on behalf of Dr. root The above impression and plan of care have been discussed and directed by signing physician. Jayne Hernandez nurse practitioner acting as scribe for signing physician.
[2017-12-14 13:41] LABS: Anion Gap 9 mmol/L; Blood Urea Nitrogen 8 mg/dL (7-17); Calcium 9.1 mg/dL (8.4-10.2); Carbon Dioxide 22 mmol/L (22-30); Chloride 106 mmol/L (98-107); Glucose 75 mg/dL (74-99); Potassium 4.6 mmol/L (3.5-5.1); Sodium 137 mmol/L (137-145)
[2017-12-14 14:40] VITALS: BP 107/66; PULSE 62; TEMP 98.6
--- NOTE | 2017-12-18 19:01 | DS ---
DISCHARGE SUMMARY DATE OF SERVICE: 12/14/2017. CHIEF COMPLAINT: Abdominal pain. HISTORY OF PRESENT ILLNESS AND PHYSICAL EXAM: Details of this lady's history and physical can be found in the initial workup. COURSE IN THE HOSPITAL: After admission, she was placed on bedrest and started on intravenous fluids and it was thought that she may have diverticulitis. Studies, however, indicated that this was not the case and that she had enlarged left ovary. She was seen by Gynecology, who recommended outpatient followup. It was felt that she could go home on the and she will follow up in the office in several days and we will make an appointment for her to also see Gynecology. FINAL DIAGNOSES: 1. Left lower quadrant abdominal pain. 2. Left ovarian mass. OPERATIONS: None. CONSULTATIONS: Gynecology and Surgery. She is improved. MMODL / IJN: [id number] /
--- NOTE | 2017-12-19 15:44 | PN ---
PROGRESS NOTE DATE OF SERVICE: 12/13/2017 CHIEF COMPLAINT: Left lower quadrant abdominal pain. HISTORY OF PRESENT ILLNESS: This lady continues to have the pain in the left lower quadrant. CT suggests that this is not diverticulitis, and she has an enlarged mass in or around the left ovary. She is being evaluated by Gynecology. PHYSICAL EXAMINATION: She is heating and ventilating tender in the left lower quadrant. There are no masses. Chest is clear. IMPRESSION: Left lower quadrant pain with an ovarian mass. PLAN: Await guidelines from Gynecology. MMODL / IJN: [id number] /
== END 2017-12-14 16:33 | disposition home or self-care (01) | DRG 761 ==
LOC: 4MS4W 13:36
PROVIDERS: ADMIT Family Medicine; ATTEND Family Medicine
DX: N83.202 Unspecified ovarian cyst, left side (principal); N83.201 Unspecified ovarian cyst, right side; F17.200 Nicotine dependence, unspecified, uncomplicated; Z82.49 Family history of ischemic heart disease and other diseases of the circulatory system; Z83.3 Family history of diabetes mellitus; Z82.3 Family history of stroke; Z88.1 Allergy status to other antibiotic agents; Z88.5 Allergy status to narcotic agent; Z88.0 Allergy status to penicillin; Z88.8 Allergy status to other drugs, medicaments and biological substances; F32.9 Major depressive disorder, single episode, unspecified; M54.5 Low back pain; G89.29 Other chronic pain; Z86.14 Personal history of Methicillin resistant Staphylococcus aureus infection; K57.90 Diverticulosis of intestine, part unspecified, without perforation or abscess without bleeding
CPT/HCPCS: 76830; 76856; 80048; 85025

== ENCOUNTER → 2017-12-24 | Outpatient (CLI) | payer OTHER ==
--- NOTE | 2017-12-24 22:49 | CT ---
EXAMINATION TYPE: CT abdomen pelvis w con DATE OF EXAM: 12/24/2017 HISTORY: Abdominal pain x1 month per patient. Left upper quadrant pain per order. CT DLP: 1242mGycm Automated Exposure Control for Dose Reduction was Utilized. CONTRAST: CT scan of the abdomen and pelvis is performed with oral and with IV Contrast, patient injected with 100 mL of Isovue 300. COMPARISON: Prior CT abdomen and pelvis February 05, 2012. Recent outside CT abdomen and pelvis Septem 2017 FINDINGS: LUNG BASES: No significant abnormality is appreciated. LIVER/GB: Cholecystectomy clips are redemonstrated. PANCREAS: No significant abnormality is seen. SPLEEN: No significant abnormality is seen. ADRENALS: No significant abnormality is seen. KIDNEYS: Slightly asymmetric larger left kidney is redemonstrated. Symmetric cortical uptake and excr etion without hydronephrosis or concerning mass is redemonstrated. BOWEL: Oral contrast does not reach colonic level making evaluation of distal bowel suboptimal. There is no suspicious small or large bowel dilatation seen there is fecal prominence throughout the colon most prominent in the cecum. There are few diverticula in the sigmoid colon. There is mild wall thic kening in the mid to distal sigmoid colon. This is presumed product of poor distention, a mild coliti s should be excluded clinically. UTERUS/ADNEXA: Anteverted uterus is again seen. Tubal ligation clips along the left margin of uterus is redemonstrated. Displaced clip into pelvic cul-de-sac is seen axial image 73. This has changed pos ition from recent CT. Left ovary is slightly larger in size versus right ovary but diminished in size from prior exam. There is interval resolution of free fluid in pelvic cul-de-sac. LYMPH NODES: No greater than 1cm abdominal or pelvic lymph nodes are appreciated. OSSEOUS STRUCTURES: There is persistent dextroconvex scoliosis centered in the upper lumbar spine. Mo derate to advanced disc space narrowing lumbosacral junction is redemonstrated. OTHER: Vertical scar in the midline of the upper to mid abdomen above the umbilicus is redemonstrated . IMPRESSION: New [id number] colonic fecal stasis most prominent in the cecum. No bowel obstructi on is noted. No suspicious new findings otherwise seen to account for patient's symptoms.
== END | disposition home or self-care (01) ==
LOC: RADCTMAIN 17:02
PROVIDERS: ATTEND Obstetrics & Gynecology
DX: K56.41 Fecal impaction (principal)
CPT/HCPCS: 74177; Q9967

== ENCOUNTER → 2019-09-17 | Outpatient (CLI) | payer OTHER ==
--- NOTE | 2019-09-18 07:16 | MR ---
EXAMINATION TYPE: MR lumbar spine wo/w con DATE OF EXAM: 09/17/2019 COMPARISON: CT abdomen and pelvis December 24, 2017 HISTORY: Lumbosacral DDD with radiculopathy per order. Chronic back pain into right calf for years pe r patient. TECHNIQUE: Multiplanar, multisequence images of the lumbar spine is performed without and with IV contrast, util izing 7 mL intravenous Gadavist FINDINGS: There is persistent dextroconvex scoliosis centered near the thoracolumbar junction. Sagitt al images of the lumbar spine show vertebral body heights and alignment to appear satisfactory. Multi level disc desiccation with mild disc space narrowing L4-L5 and moderate disc space narrowing L5-S1 l evels redemonstrated. The conus medullaris is normal in position and signal ending inferior L1 level . Heterogeneous Modic type II endplate changes involving the right L4-L5 level. Postcontrast images s how single enhancing left sacral nerve, nonspecific finding. Some prominence of epidural fat noted be ginning mid S2 level. Axial images at T12-L1 level shows focal left paracentral disc protrusion effacing anterolateral thec al sac on axial image 31. Axial images at L1-L2, L2-L3, and L3-L4 levels are all within normal limits. Axial images at L4-L5 level show mild to moderate facet degenerative changes and ligamentum flavum hy pertrophy effacing posterior lateral thecal sac. There is broad disc bulge with right paracentral dis c protrusion component effacing the anterior thecal sac. There is mild right greater than left bilate ral anterior inferior neural foraminal narrowing. Axial images at the L5-S1 level show mild facet degenerative changes bilaterally. Spinal canal preser vane. Nonenhancing 9 x 5 mm ovoid lesion anterior to IVC in the liver favors thin-walled cyst axial image 3 2. IMPRESSION: Multilevel degenerative changes in the lumbar spine greatest T12-L1 and L4-L5 levels as d etailed above
== END | disposition home or self-care (01) ==
LOC: RADMRIMAIN 17:41
PROVIDERS: ATTEND Physical Medicine & Rehabilitation
DX: M47.26 Other spondylosis with radiculopathy, lumbar region (principal); M54.9 Dorsalgia, unspecified; G89.29 Other chronic pain
CPT/HCPCS: 72158; A9585

== ENCOUNTER → 2020-09-27 | Outpatient (CLI) | payer OTHER ==
--- NOTE | 2020-09-27 14:55 | CT ---
EXAMINATION TYPE: CT abdomen pelvis w con DATE OF EXAM: 09/27/2020 COMPARISON: 12/24/2017 HISTORY: 45-year-old female K57.32, Diverticulitis, left lower quadrant pain TECHNIQUE: Contiguous axial scanning of the abdomen and pelvis following administration of 100 ml Iso carmelina 300 IV contrast. Delayed images through the kidneys and coronal/sagittal reconstructions perform ed. CT DLP: 722.8 mGycm Automated exposure control for dose reduction was used. FINDINGS: Heart normal size without pericardial effusion. Some minimal mosaic attenuation the visualized lower lungs could reflect small airways disease. No pleural effusion. Liver enlarged at 19.9 cm. No focal lesions seen. Portal venous system is patent. No biliary ductal d ilatation. Cholecystectomy clips. Adrenal glands, kidneys, and pancreas appear within normal limits. Spleen mildly enlarged at 14.2 cm measured on axial series, axial image 20. Prior epigastric ventral abdominal wall mesh repair. No dilated small bowel, free fluid, or free air. Moderate stool burden. No paraspinous inflammatory change. Masslike thickening within the lower ascen ding colon near the region of the ileocecal valve measuring 4.8 cm wide by 3.6 cm craniocaudal, axial image 51 and coronal image 27. Borderline enlarged right lower quadrant mesenteric lymph node measuring up to 8 mm, axial image 46, probably reactive. Otherwise, no abdominal lymphadenopathy seen. Bladder is urine distended. Uterus is anteverted. Both ovaries are visualized. No abnormal fluid saurabh ection in the pelvis. A displaced tubal ligation clip is present in the cul-de-sac. Left-sided tubal ligation clip also noted. No pelvic lymphadenopathy seen. Bones: Moderate degenerative disc disease lower lumbar spine and mild in the lower thoracic spine. IMPRESSION: 1. MASS LIKE DENSITY IN THE LOWER ASCENDING COLON NEAR THE REGION OF THE ILEOCECAL VALVE MEASURING 4. 8 CM. COLON CANCER SHOULD BE EXCLUDED. RECOMMEND DIRECT VISUALIZATION. 2. NO OBSTRUCTIVE OR INFLAMMATORY CHANGES. 3. HEPATOMEGALY (19.9 CM), MILD SPLENOMEGALY (14.2 CM), MODERATE STOOL BURDEN, AND A DISPLACED RIGHT TUBAL LIGATION CLIP WITH THE CLIP LOCATED IN THE CUL-DE-SAC.
== END | disposition home or self-care (01) ==
LOC: RADCTMAIN 10:02
PROVIDERS: ATTEND Surgery
DX: R16.2 Hepatomegaly with splenomegaly, not elsewhere classified (principal); T83.428A Displacement of other prosthetic devices, implants and grafts of genital tract, initial encounter; K57.32 Diverticulitis of large intestine without perforation or abscess without bleeding; Y82.8 Other medical devices associated with adverse incidents
CPT/HCPCS: 74177; Q9967 ×2

== ENCOUNTER 2020-10-05 | Day surgery (SDC) | payer OTHER | END 2020-10-05 12:23 | disposition home or self-care (01) | DX: K57.30 Diverticulosis of large intestine without perforation or abscess without bleeding (principal); F17.200 Nicotine dependence, unspecified, uncomplicated; Z82.49 Family history of ischemic heart disease and other diseases of the circulatory system; Z83.3 Family history of diabetes mellitus; Z87.19 Personal history of other diseases of the digestive system; Z88.1 Allergy status to other antibiotic agents; Z88.5 Allergy status to narcotic agent | CPT/HCPCS: 81025; 45378; J2250; J2704 ==

== ENCOUNTER → 2021-09-06 | Outpatient (CLI) | payer OTHER ==
--- NOTE | 2021-09-06 12:20 | XR ---
EXAMINATION TYPE: XR knee complete LT DATE OF EXAM: 09/06/2021 COMPARISON: NONE HISTORY: Pain TECHNIQUE: Three views are submitted. FINDINGS: Joint spaces are preserved. Osseous structures are intact. No acute fracture seen. Fluid within th e supra patellar bursa. Tiny spur involving the upper margin of the patella. Soft tissue calcificatio ns noted. IMPRESSION: 1. There is a suprapatellar bursal fluid collection. Correlate clinically.
== END | disposition home or self-care (01) ==
LOC: RADXRMAIN 11:54
PROVIDERS: ATTEND Family Medicine
DX: M25.562 Pain in left knee (principal)

== ENCOUNTER → 2021-11-15 | Outpatient (CLI) | payer OTHER ==
--- NOTE | 2021-11-15 22:19 | MR ---
EXAMINATION TYPE: MR knee LT wo con DATE OF EXAM: 11/15/2021 COMPARISON: Prior MRI left knee December 16, 2014. Outside left knee x-ray October 25, 2021. HISTORY: Left knee pain, locking, and swelling. History of prior left knee surgery. TECHNIQUE: Multiplanar, multisequence imaging of the left knee is performed without IV contrast. FINDINGS: MEDIAL MENISCUS: Anterior horn remains intact without tear. There remains subtle increased signal pos terior horn of medial meniscus without definitive extension to articular surface. LATERAL MENISCUS: Anterior and posterior horn remain intact without tear. CRUCIATE LIGAMENTS: The anterior and posterior cruciate ligaments remain intact and unremarkable. COLLATERAL LIGAMENTS: The medial collateral ligament and lateral collateral ligament complex remain i ntact. EXTENSOR MECHANISM: Visualized quadriceps and patellar tendons remain intact. Some increased signal i s redemonstrated in distal quadriceps tendon. Just posterior to this there is stable intermediate tri angular shaped soft tissue density along superior posterior aspect of patella of uncertain etiology. EFFUSION: There is a small to borderline moderate size suprapatellar joint effusion slightly larger f rom prior. POPLITEAL CYST: No popliteal/echeverria cyst. TRICOMPARTMENT SPACES: Mild mid narrowing medial tibiofemoral compartment. No significant spurring is present. CARTILAGE: Tricompartment articular cartilage is maintained. No significant chondromalacia patella is seen. BONE MARROW SIGNAL: Heterogeneity of bone marrow signal intensity consistent with red marrow reconver deng is redemonstrated. No significant edema. OTHER: No additional significant abnormality is appreciated. IMPRESSION: 1. 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 Red marrow reconversion is redemonstrated. Small to borderline moderate sized patellar joint effus ion slightly larger from prior with new mild narrowing medial tibiofemoral compartment otherwise no s ignificant change from 2016 MRI.
== END | disposition home or self-care (01) ==
LOC: RADMRIMAIN 11:00
PROVIDERS: ATTEND Orthopaedic Surgery
DX: M25.562 Pain in left knee (principal)

== ENCOUNTER → 2021-12-08 | Outpatient (CLI) | payer OTHER ==
[2021-12-08 14:47] LABS: Basophils # (A) 0.04 X 10*3/uL (0.00-0.10); Basophils % (A) 0.5 %; Eosinophils # (A) 0.05 X 10*3/uL (0.04-0.35); Eosinophils % (A) 0.6 %; HCT 43.7 % (37.2-46.3); HGB 14.5 g/dL (12.0-15.0); Immature Grans, Automated 0.1 %; Lymphocytes # (A) 3.18 X 10*3/uL (0.90-5.00); Lymphocytes % (A) 37.8 %; MCH 29.8 pg (27.0-32.0); MCHC 33.2 g/dL (32.0-37.0); MCV 89.7 fL (80.0-97.0); Mean Platelet Volume 9.4 fL (9.5-12.2); Monocytes # (A) 0.37 X 10*3/uL (0.20-1.00); Monocytes % (A) 4.4 %; NRBC Per 100 WBC 0 /100 WBCS (0.0-0.0); Neutrophils # (A) 4.76 X 10*3/uL (1.80-7.70); Neutrophils % (A) 56.6 %; Platelet Count 293 X 10*3/uL (140-440); RBC 4.87 X 10*6/uL (4.10-5.20); RDW 12.5 % (11.5-14.5); WBC 8.41 X 10*3/uL (4.50-10.00)
[2021-12-08 14:50] LABS: Anion Gap 11.6 mmol/L (10.00-18.00); Carbon Dioxide 24.4 mmol/L (20.0-27.5); Potassium 4.5 mmol/L (3.5-5.5)
== END | disposition home or self-care (01) ==
LOC: LABWHC1 08:53
PROVIDERS: ATTEND Orthopaedic Surgery
DX: Z01.812 Encounter for preprocedural laboratory examination (principal); M23.92 Unspecified internal derangement of left knee
CPT/HCPCS: 80051; 85025

== ENCOUNTER 2021-12-21 08:43 | Day surgery (SDC) | payer OTHER ==
[2021-12-19 11:01] VITALS: BMI 29.0
--- NOTE | 2021-12-21 02:37 | HP ---
HISTORY AND PHYSICAL DATE OF SURGERY: 12/21/2021. HISTORY OF PRESENT ILLNESS: Jeanine Baker is a 46-year-old patient seen with progressive left knee pain. We discussed options. She elected to proceed with left knee arthroscopy. Consent was obtained. PAST MEDICAL HISTORY: Anxiety, chronic back pain. PAST SURGICAL HISTORY: Tubal ligation, cholecystectomy, knee arthroscopy, herniorrhaphy. DAILY MEDICATIONS: 1. [place]. 2. Topamax. 3. Cymbalta. 4. Abilify. ALLERGIES: Tetracycline, Keflex, Percocet. SOCIAL HISTORY: She smokes cigarettes. PHYSICAL EVALUATION OF THE LEFT KNEE: Range of motion is negative 3 to 125. Mild effusion. Tenderness, medial joint line. Positive medial Amador's. Ligaments stable. Hip rotation without pain. Distal neurovascular exam intact RADIOGRAPHS: Left knee radiographs revealed mild osteoarthritis and effusion. MRI left knee revealed abnormal signal through the medial meniscus and intra-articular effusion. IMPRESSION: 1. Internal derangement of left knee with medial meniscal tear. 2. Chronic opioid use. PLAN: Left knee arthroscopy with partial medial meniscectomy and debridement. MMODL / IJN: [id number] /
[~2021-12-21 08:43] MED LIST: DEXAMETHASONE SOD PHOSPHATE 4 MG/ML 1 ML VIAL IV ONE; HYDROmorphone 0.5 MG/0.5 ML SYRINGE IVP PRN; LACTATED RINGERS 1,000 ML IV SCH; ONDANSETRON 4 MG/2 ML VIAL IVP ONE; Pre Op ABX Message 1 EACH MISC MISCELLANE ONE
[2021-12-21] MEDS ORDERED: LIDOCAINE 1% (10MG/ML) FOR IV START INTRADERMA ONE (09:20)
[2021-12-21] MEDS ORDERED: MIDAZOLAM 2 MG/2 ML VIAL IVP ONE (09:53)
[2021-12-21] MEDS ORDERED: PROPOFOL 10 MG/ML 20 ML VIAL IV ONE (10:17)
[2021-12-21] MEDS ORDERED: LIDOCAINE 2% INJ 20 MG/ML (2 ML VIAL) ONE (10:17)
[2021-12-21] MEDS ORDERED: KETOROLAC 15 MG/ML 1 ML VIAL ONE (10:17)
[2021-12-21] MEDS ORDERED: MIDAZOLAM 2 MG/2 ML VIAL ONE (10:17)
[2021-12-21] MEDS ORDERED: fentaNYL (PF) 50 MCG/ML 2 ML AMP ONE (10:17)
[2021-12-21] MEDS ORDERED: SODIUM CHLORIDE 0.9% 100 ML with ceFAZolin 2,000 MG IV ONE ×2 (10:39)
[2021-12-21] MEDS ORDERED: BUPIVACAINE (PF) 0.25% 30 ML VIAL SQ ONE (10:59)
[2021-12-21 11:17] VITALS: TEMP 96.9
--- NOTE | 2021-12-21 11:22 | P.OP ---
Date of Procedure: 12/21/21 Preoperative Diagnosis: Internal derangement left knee Postoperative Diagnosis: 1. Tear medial meniscus left knee 2. Grade 4 chondromalacia medial femoral condyle left knee 3. Loose body left knee 4. Reactive synovitis medial, lateral and suprapatellar compartments left knee Procedure(s) Performed: 1. Arthroscopic partial medial meniscectomy left knee 2. Arthroscopic microfracture medial femoral condyle left knee 3. Arthroscopic removal loose body left knee 4. Arthroscopic partial synovectomy medial, lateral and suprapatellar compartments left knee Anesthesia: ELEONA, local Surgeon: Reinaldo Green Estimated Blood Loss (ml): 7 Pathology: none sent Condition: stable Disposition: PACU Indications for Procedure: 46-year-old patient who was seen with progressive left shoulder pain. After treatment options were discussed, she elected to proceed with arthroscopy Operative Findings: See description of procedure Description of Procedure: Patient was taken to the operative suite. Patient underwent a general an esthetic by the department of anesthesia. Patient was given preoperative antibiotics. The left lower extremity was placed in a well-padded arthroscopic leg fields. The left leg was prepped and draped in the normal sterile orthopedic fashion. A lateral parapatellar and suprapatellar incision was made. Trochars were inserted. Arthroscopy was initiated. Suprapatellar pouch revealed diffuse thick reactive synovitis. The patellofemoral joint appeared to articulate congruently. There was grade 2/3 chondromalacia of the patellofemoral joint. The scope was guided into the medial gutter. No loose bodies or plica were identified. The scope was then guided into the medial compartment. A medial parapatellar incision was made. Trocar inserted followed by probe. There was a loose body within the medial compartment. I introduced a pituitary and remove the loose body without difficulty. There was a radial tear involving the posterior horn of the medial meniscus. There was an area of grade 3/4 chondromalacia medial femoral condyle central area medial femoral condyle measuring approximately 1.5 cm with some peripheral osteochondral flap tears present. There was some thick reactive synovitis anteriorly. I performed a partial medial meniscectomy getting down to stable meniscal tissue. I performed a chondroplasty medial femoral condyle getting down to stable osteochondral tissue. I performed a partial synovectomy decompressing the reactive synovitis. I did note an area of grade 4 chondromalacia central area of the medial femoral condyle some exposed bone. I performed a microfracture to the medial femoral condyle area of exposed bone penetrating the bone with resultant bleeding at the microfracture site. The residual meniscus was probed and was found to be stable. The residual articular osteochondral surface was stable. There was good decompression of the synovitis. Scope and probe were then guided into the intercondylar notch. Cruciates were identified, probed and found to be stable. The scope and probe were then guided into lateral compartment. Lateral meniscus was probed and was found to be stable. There were grade 1 chondromalacia changes lateral compartment with no obvious tears present. There was some thick reactive synovitis anteriorly. I introduced a motorized shaver and performed a partial synovectomy. The shaver was now removed. There was good decompression of the synovitis. The scope was in guided back into the suprapatellar compartment. I introduced a motorized shaver into the super patellar compartment. I debrided some piecemeal fragments of meniscus that I encountered. I performed a partial synovectomy. The shaver was now removed. There was good decompression of synovitis. I took one more look around the entire knee, no residual debris. Instruments were now removed from the joint. The joint was infiltrated with .25% Marcaine. Steri-Strips were applied to the portal sites. Sterile dressings were applied. The patient was placed into a SIGIFREDO hose. No tourniquet was utilized. The patient was awakened, transferred to a bed and taken to recovery stable satisfactory condition.
[2021-12-21] MEDS ORDERED: HYDROcodone/APAP 10-325MG 1 EACH TAB PO ONE (12:23)
[2021-12-21] MEDS ORDERED: HYDROcodone/APAP 10-325MG 1 EACH TAB ONE (12:26)
[2021-12-21 12:29] VITALS: RESP 20
[2021-12-21 12:41] VITALS: BP 136/80; PULSE 76
== END 2021-12-21 13:20 | disposition home or self-care (01) ==
LOC: OR 08:43
PROVIDERS: ATTEND Orthopaedic Surgery
DX: S83.242A Other tear of medial meniscus, current injury, left knee, initial encounter (principal); M94.262 Chondromalacia, left knee; M23.42 Loose body in knee, left knee; M65.88 Other synovitis and tenosynovitis, other site; M23.92 Unspecified internal derangement of left knee; F41.9 Anxiety disorder, unspecified; G89.29 Other chronic pain; M54.9 Dorsalgia, unspecified; Z79.899 Other long term (current) drug therapy; Z88.1 Allergy status to other antibiotic agents; Z88.5 Allergy status to narcotic agent; F11.90 Opioid use, unspecified, uncomplicated; F17.210 Nicotine dependence, cigarettes, uncomplicated; X58.XXXA Exposure to other specified factors, initial encounter
CPT/HCPCS: 29881; 29879; 84703; J2250; J1100; J2405; J0690; J3010; J1885; J2704; J2001

== ENCOUNTER → 2022-02-13 | Outpatient (CLI) | payer OTHER ==
--- NOTE | 2022-02-13 11:22 | CT ---
EXAMINATION TYPE: CT brain wo con DATE OF EXAM: 02/13/2022 COMPARISON: None HISTORY: Headache x2 weeks. CT DLP: 1180.9 mGycm. Automated Exposure Control for Dose Reduction was Utilized. TECHNIQUE: CT scan of the head is performed without contrast. FINDINGS: There is no acute intracranial hemorrhage, mass effect, or midline shift identified. The ventricles and sulci are within normal limits in size. The globes are intact and the visualized sin uses are clear. The cerebellar tonsils are low-lying in position suggesting Chiari aeration. Recommend follow-up MRI. Tiny fat attenuation seen anterior to the midbrain represent a tiny dermoid measuring 3 mm. IMPRESSION: 1. Correlate for Chiari malformation. Recommend MRI. 2. There is a 2 to 3 mm fat attenuation anterior to the midbrain may represent a tiny dermoid. MRI fo llow-up also suggested.
== END | disposition home or self-care (01) ==
LOC: RADCTMAIN 10:56
PROVIDERS: ATTEND Family Medicine
DX: R51.9 Headache, unspecified (principal)
CPT/HCPCS: 70450

== ENCOUNTER → 2022-02-22 | Outpatient (CLI) | payer OTHER ==
--- NOTE | 2022-02-28 10:32 | MM ---
Reason for Exam: Screening (asymptomatic). Last mammogram was performed 5 year(s) and 7 month(s) ago. Patient History: Menarche at age 14. First Full-Term at age 21. Perimenopausal. Hormonal Contraceptives for 13 years from age 15 until age 28. Last menstrual period: 01/28/2022 Risk Values: Brooke 5 year model risk: 0.7%. NCI Lifetime model risk: 7.8%. Prior Study Comparison: 07/25/2016 Bilateral Screening Mammogram, [facility]. 06/13/2017 Right Diagnostic Mammogram, [facility]. Tissue Density: The breast tissue is heterogeneously dense. This may lower the sensitivity of mammography. Findings: Analyzed By CAD. There is no suspicious group of microcalcifications or new suspicious mass in either breast. Overall Assessment: Negative, BI-RAD 1 Management: Screening Mammogram of both breasts in 1 year. A clinical breast exam by your physician is recommended on an annual basis and results should be correlated with mammographic findings. [facility] will attempt to contact patient to return for supplemental views and ultrasound if indicated. Electronically signed and approved by: Jvai Reyna DO
== END | disposition home or self-care (01) ==
LOC: RADMAMWWP 09:10
PROVIDERS: ATTEND Obstetrics & Gynecology
DX: Z12.31 Encounter for screening mammogram for malignant neoplasm of breast (principal)
CPT/HCPCS: 77067

== ENCOUNTER → 2022-02-22 | Outpatient (CLI) | payer OTHER ==
--- NOTE | 2022-02-22 10:22 | MR ---
EXAMINATION TYPE: MR brain wo con DATE OF EXAM: 02/22/2022 9:05 AM COMPARISON: None. CLINICAL INDICATION:Female, 46 years old with history of R51.9 HEADACHE. TECHNIQUE: Multi planar, multi sequence imaging was performed through the brain including: T1, T2, In version recovery, Diffusion weighted imaging, and gradient echo imaging. No gadolinium was given. FINDINGS: The daniels-white junctions, ventricular system, and cisterns appear unremarkable. Midline structures sh ow no abnormality. Diffusion-weighted imaging shows no evidence of restricted diffusion. The suscepti bility weighted images do not reveal any evidence for micro-hemorrhage. The bone marrow signal is within normal limits. The paranasal sinuses and globes are unremarkable. IMPRESSION: 1. No evidence of intracranial mass or acute/subacute infarct. .
== END | disposition home or self-care (01) ==
LOC: RADMRIMAIN 08:06
PROVIDERS: ATTEND Family Medicine
DX: R51.9 Headache, unspecified (principal)
CPT/HCPCS: 70551

== ENCOUNTER → 2023-01-10 | Outpatient (CLI) | payer OTHER ==
--- NOTE | 2023-01-11 08:27 | MR ---
EXAMINATION TYPE: MR lumbar spine wo con DATE OF EXAM: 01/10/2023 3:17 PM CLINICAL INDICATION:Female, 47 years old with history of M51.36 DISC DEGENERATION, LUMBAR REGION; PHH , Low back pain into right side COMPARISON: None TECHNIQUE: Multi planar, multi sequence imaging was performed utilizing: T1-weighted, T2-weighted, a nd turbo inversion recovery imaging of the lumbar spine. IV Contrast: cc . (None if empty) FINDINGS: Alignment: The lumbar vertebral bodies have preserved heights and alignment. Cord: The conus medullaris and the distal spinal cord appear unremarkable with regards to their signa l intensity and morphology. Bones/Discs: There is disc degeneration most pronounced at L4-L5 with Modic endplate changes at the a djoining endplate bony edema disc space narrowing with facet joint arthropathy. T12-L1: No evidence o f significant spinal canal stenosis or neural foraminal stenosis. L1-L2: No evidence of significant spinal canal stenosis or neural foraminal stenosis. L2-L3: No evidence of significant spinal canal stenosis or neural foraminal stenosis. L3-L4: No evidence of significant spinal canal stenosis or neural foraminal stenosis. L4-L5: Disc bulge and facet joint arthropathy result in mild spinal canal and mild bilateral neural f oraminal stenosis. L5-S1: The disc is rounded posterior morphology without significant spinal canal stenosis. Facet join t arthropathy with mild bilateral neural foraminal stenosis. No significant spinal canal or neural foraminal stenosis in the remainder of the visualized levels. Other findings: None. IMPRESSION: 1. No definitive evidence of disc herniation or significant spinal canal stenosis. 2. Moderate disc degeneration with associated osteoarthritic changes at L4-L5 with reactive bony mariza ma.
== END | disposition home or self-care (01) ==
LOC: RADMRIMAIN 14:38
PROVIDERS: ATTEND Family Medicine
DX: M51.36 Other intervertebral disc degeneration, lumbar region (principal); M47.816 Spondylosis without myelopathy or radiculopathy, lumbar region; R60.0 Localized edema
CPT/HCPCS: 72148

== ENCOUNTER → 2023-01-31 | Outpatient (CLI) | payer OTHER ==
[2023-02-01 10:26] LABS: Serum Amphetamine Negative; Serum Barbiturates Negative; Serum Benzodiazepine Negative; Serum Cocaine Negative; Serum Methadone Negative; Serum Opiates Negative; Serum Phencyclidine Negative; Serum Propoxyphene Negative; Serum THC (Cannabis) Negative
== END | disposition home or self-care (01) ==
LOC: LABWHC1 09:32
PROVIDERS: ATTEND Physician Assistant Medical
DX: Z02.83 Encounter for blood-alcohol and blood-drug test (principal)
CPT/HCPCS: 36415; 80307

== ENCOUNTER → 2023-01-31 | Outpatient (CLI) | payer OTHER ==
[2023-01-31 10:10] VITALS: BP 136/85; PULSE 82; RESP 15; TEMP 97.4
--- NOTE | 2023-01-31 14:58 | P.PAINPG ---
PQRS Measure Charge Sheet Comment: HISTORY OF PRESENT ILLNESS: A 47 yr old female as a referral from Dr Jamison presents today w severe and chronic LBP secondary to DDD, spondylosis and facet arthropathy without myelopathy for evaluation. Dr Santizo (PCP) referred pt to Dr Javier Gerard (Neurology) and ordered a lumbar MRI. MAPS reviewed and has picked up [place] 7.5/325mg #120 on 01/13/23 so pt has a 2 wks supply remaining. Pt states pain level is provoked at 4/10 in intensity, constant, localized in the lumbar spine, sharp in character without shooting pain. Pain is provoked by sitting. Pain is alleviated by medications ([place] 10/325mg), PT in 2021, use of a TENS unit at home, heat, ice, repositioning and rest. Oswestry axial pain score at 29. PMH: OA, HTN, Hyperlipidemia PSH: Colonoscopy (2020), EGDs, L Knee Arthroscopy (2021), Adenoidectomy, Section, Cholecystectomy, Incisional Hernia Repair, Tonsillectomy, Tubal Ligation SH: Daily tobacco use, No ETOH abuse, No illicit drug use FH: Fa- CVA, HTN. Mo- DM. All: See list Meds: See list REVIEW OF ORGAN SYSTEMS: CONSTITUTIONAL: No fevers or chills. No recent weight loss. NEUROLOGICAL: + numbness and tingling along the distal extremities. No seizure disorders or headaches. MUSCULOSKELETAL: + pain PSYCHIATRIC: Denies current depression or suicidal thoughts. Physical Examinations : Constitutional : Cooperative , not in acute distress . Neurologic : Cranial nerve II to XII intact. No focal neurological deficits. Psychiatric : alert & oriented x 3. Matching mood & appropriate affect. Judgment & insight intact. Musculoskeletal : Cervical Spine Motor strength in the deltoid and biceps: Normal right side. Normal Left side Motor strength biceps and the wrist extensors: Normal right side . Normal left side Motor strength in the triceps muscle: Normal right side. Normal left side Deep tendon reflexes: Normal at the biceps. Normal at Brachioradialis. Normal at triceps Vertebral body tenderness to deep palpation over Cervical facet loading test: positive bilaterally Spurling test: positive bilaterally Neck distraction test: positive bilaterally Jayro sign: positive bilaterally Lumbar spine Motor strength lower extremities ,thigh and legs 5/5 Right side , 5/5 Left side Deep tendon reflexes : Normal Knee Jerk. Normal Ankle Jerk Vertebral body tenderness over L4 Bull Test positive Lumbar facet Loading Test: positive Right / positive Left Range of motion of the lumbar spine Flexion 30 degrees, extension 10 degrees Straight Leg Raise test: Left/ Right positive at <40 degrees Johann test: positive right / positive left. Severe tenderness over the Sacroiliac joint on the Right / Left sides Gaenslen test: positive bilaterally Seated flexion test: positive bilaterally. Sacral spine : Severe tenderness over the Sacroiliac joint: right side / left side Range of motion: Flexion of the lumbar spine <60 degrees Range of motion: Extension of the lumbar spine <20 degrees Gaenslen's Test positive Johann test: positive right side / left side Thigh Thrust Test Sacral Thrust Test Imaging: MRI noncontrast of the lumbar spine from 01/10/23 reviewed Assessment/ Plan : Lumbar DDD Recommendation of PT x 6 wks M51.36 and likely RED L4-L5. Will check UDS/ Blood Tox Screen today. Must be completed today. May follow up in 2 wks after review of results for a re evaluation. All questions answered. I have spent greater than 30 minutes on patient care today. Dr Aponte was available by phone for the evaluation of this patient. The time was used to review the medical records including relevant urine studies and Prescription history (MAPs), review of the available imaging, evaluation and examination of the patient, coordination of care with the medical staff and if applicable referring physicians, as well as creation of the medical record PQRS Narrative: Smoking Status Current every day smoker Home Medications: Ambulatory Orders HYDROcodone/APAP 10-325MG [[place] 10-325] 1 tab PO Q6HR PRN 10/01/20 QUEtiapine [SEROquel] 100 mg PO HS 10/01/20 lamoTRIgine [LaMICtal] 400 mg PO HS 12/19/21 Controlled Substance Measures - Controlled Substance Measures Is patient prescribed a controlled substance at discharge?: No
== END ==
LOC: PNWHC3 08:44
PROVIDERS: ATTEND Specialist
DX: Z02.83 Encounter for blood-alcohol and blood-drug test (principal); M51.36 Other intervertebral disc degeneration, lumbar region; M19.90 Unspecified osteoarthritis, unspecified site; I10 Essential (primary) hypertension; E78.5 Hyperlipidemia, unspecified; F17.200 Nicotine dependence, unspecified, uncomplicated; Z88.1 Allergy status to other antibiotic agents; Z88.8 Allergy status to other drugs, medicaments and biological substances
CPT/HCPCS: 99211

== ENCOUNTER → 2023-02-14 | Outpatient (CLI) | payer OTHER ==
[2023-02-14 08:27] VITALS: BP 128/85; PULSE 89; RESP 16; TEMP 98.6
--- NOTE | 2023-02-14 14:39 | P.PAINPG ---
PQRS Measure Charge Sheet Comment: HISTORY OF PRESENT ILLNESS: A 47 yr old female presents today w severe and chronic LBP secondary to DDD, spondylosis and facet arthropathy without myelopathy for evaluation. Pt states pain level is provoked at 6/10 in intensity, constant, localized in the lumbar spine, predominantly axial, sharp in character w occasional shooting pain down the BLEs. Pain is provoked by sitting. Pain is alleviated by medications, PT x 3 wks in Jan 2023 which she is currently in, use of a TENS unit at home, heat, ice, repositioning and rest. UDS from 01/31/23 negative for opiates but MAPS showed pt had a 2 wks supply remaining. Oswestry axial pain score at 29. Interventional procedures include DENIES Medications include [place] 10/325mg REVIEW OF ORGAN SYSTEMS: CONSTITUTIONAL: No fevers or chills. No recent weight loss. NEUROLOGICAL: + numbness and tingling along the distal extremities. No seizure disorders or headaches. MUSCULOSKELETAL: + pain PSYCHIATRIC: Denies current depression or suicidal thoughts. Physical Examinations : Constitutional : Cooperative , not in acute distress . Neurologic : Cranial nerve II to XII intact. No focal neurological deficits. Psychiatric : alert & oriented x 3. Matching mood & appropriate affect. Judgment & insight intact. Musculoskeletal : Cervical Spine Motor strength in the deltoid and biceps: Normal right side. Normal Left side Motor strength biceps and the wrist extensors: Normal right side . Normal left side Motor strength in the triceps muscle: Normal right side. Normal left side Deep tendon reflexes: Normal at the biceps. Normal at Brachioradialis. Normal at triceps Vertebral body tenderness to deep palpation over Cervical facet loading test: positive bilaterally Spurling test: positive bilaterally Neck distraction test: positive bilaterally Jayro sign: positive bilaterally Lumbar spine Motor strength lower extremities ,thigh and legs 5/5 Right side , 5/5 Left side Deep tendon reflexes : Normal Knee Jerk. Normal Ankle Jerk Vertebral body tenderness over L4 Bull Test positive Lumbar facet Loading Test: positive Right / positive Left Range of motion of the lumbar spine Flexion 30 degrees, extension 10 degrees Straight Leg Raise test: Left/ Right positive at <40 degrees Johann test: positive right / positive left. Severe tenderness over the Sacroiliac joint on the Right / Left sides Gaenslen test: positive bilaterally Seated flexion test: positive bilaterally. Sacral spine : Severe tenderness over the Sacroiliac joint: right side / left side Range of motion: Flexion of the lumbar spine <60 degrees Range of motion: Extension of the lumbar spine <20 degrees Gaenslen's Test positive Johann test: positive right side / left side Thigh Thrust Test Sacral Thrust Test Imaging: MRI noncontrast of the lumbar spine from 01/10/23 reviewed Assessment/ Plan : Lumbar DDD Recommendation of RED L4-L5. Blood tox screen negative for opiates. Pt refusing non -narcotic medications, stating she can't take NSAIDs due to her stomach. Pt refused topical Lidocaine and Diclofenac gel also. Risks, benefits of procedure discussed and pt verbalized understanding. Protocol for discontinuation/ continuation of medications surrounding procedure discussed. All questions answered. I have spent greater than 30 minutes on patient care today. Dr Aponte was available by phone for the evaluation of this patient. The time was used to review the medical records including relevant urine studies and Prescription history (MAPs), review of the available imaging, evaluation and examination of the patient, coordination of care with the medical staff and if applicable referring physicians, as well as creation of the medical record PQRS Narrative: Smoking Status Current every day smoker Home Medications: Ambulatory Orders HYDROcodone/APAP 10-325MG [[place] 10-325] 1 tab PO Q6HR PRN 10/01/20 QUEtiapine [SEROquel] 100 mg PO HS 10/01/20 lamoTRIgine [LaMICtal] 400 mg PO HS 12/19/21 Controlled Substance Measures - Controlled Substance Measures Is patient prescribed a controlled substance at discharge?: No
== END ==
LOC: PNWHC3 07:57
PROVIDERS: ATTEND Specialist
DX: M51.36 Other intervertebral disc degeneration, lumbar region (principal); F17.200 Nicotine dependence, unspecified, uncomplicated; Z88.1 Allergy status to other antibiotic agents; Z88.8 Allergy status to other drugs, medicaments and biological substances; Z88.5 Allergy status to narcotic agent
CPT/HCPCS: 99211

== ENCOUNTER → 2023-06-19 | Outpatient (CLI) | payer OTHER ==
--- NOTE | 2023-06-20 14:52 | CT ---
EXAMINATION TYPE: CT abdomen pelvis wo con CT DLP: 838.7 mGycm, Automated exposure control for dose reduction was used. DATE OF EXAM: 06/19/2023 1:50 PM COMPARISON: CT abdomen and pelvis 09/27/2020 CLINICAL INDICATION:Female, 48 years old with history of R10.84 ABDOMINAL PAIN Z12.31 Screening; abdo aspen pain, distention TECHNIQUE: Axial CT abdomen pelvis wo con;Sagittal and coronal reformats were created on a separate workstation. Contrast used: mL of , (none if empty) Oral contrast used: without Oral Contrast (none if empty) FINDINGS: LOWER CHEST: Bases are clear. No pleural effusions. ABDOMEN LIVER: Unremarkable GALLBLADDER AND BILE DUCTS: Cholecystectomy clips in the gallbladder fossa. PANCREAS: Unremarkable. SPLEEN: Unremarkable. ADRENAL GLANDS: Unremarkable. KIDNEYS AND URETERS: No evidence of hydronephrosis or renal calculus. The ureters are unremarkable. PELVIS BLADDER: Unremarkable REPRODUCTIVE: Bilateral tubal ligation clips are identified. Otherwise unremarkable. ABDOMEN & PELVIS STOMACH AND BOWEL: Stomach and duodenum are unremarkable. No evidence of bowel obstruction. PERITONEUM/RETROPERITONEUM: No evidence of pneumoperitoneum or free fluid. VASCULATURE: No evidence of aortic aneurysm. MUSCULOSKELETAL: No acute osseous abnormalities LYMPH NODES: No gross evidence for lymphadenopathy. SOFT TISSUE/ABDOMINAL WALL: Unremarkable IMPRESSION: 1. No CT findings that would explain patient's symptoms.
--- NOTE | 2023-06-21 13:46 | MM ---
Reason for Exam: Screening (asymptomatic). Last mammogram was performed 1 year(s) and 4 month(s) ago. Patient History: Menarche at age 14. First Full-Term at age 21. Perimenopausal. Hormonal Contraceptives for 13 years from age 15 until age 28. Last menstrual period: 06/01/2023 Risk Values: Brooke 5 year model risk: 0.7%. NCI Lifetime model risk: 7.6%. Prior Study Comparison: 07/25/2016 Bilateral Screening Mammogram, [facility]. 06/13/2017 Right Diagnostic Mammogram, [facility]. 02/22/2022 Bilateral MG screening mammo w CAD, [facility]. Tissue Density: The breasts are heterogeneously dense, which may obscure small masses. Findings: Analyzed By CAD. There is no suspicious group of microcalcifications or new suspicious mass in either breast. Overall Assessment: Benign, BI-RAD 2 Management: Screening Mammogram of both breasts in 1 year. . Patient should continue monthly self-breast exams. A clinical breast exam by your physician is recommended on an annual basis. This exam should not preclude additional follow-up of suspicious palpable abnormalities. Note on Brooke scores and lifetime risk: 1. A Brooke score greater than 3% is considered moderate risk. If this is the case, consider specialist referral to assess eligibility for a risk reducing agent. 2. If overall lifetime risk for the development of breast cancer is 20% or higher, the patient may qualify for future screening with alternating mammogram and breast MRI. Electronically signed and approved by: Bubba Cole M.D. Radiologis
== END | disposition home or self-care (01) ==
LOC: RADCTMAIN 13:27
PROVIDERS: ATTEND Family Medicine
DX: Z12.31 Encounter for screening mammogram for malignant neoplasm of breast (principal); R10.84 Generalized abdominal pain; R14.0 Abdominal distension (gaseous)
CPT/HCPCS: 74176; 77067